=== PATIENT | male | born 1975 | race Caucasian/White ===

== ENCOUNTER 2018-07-03 07:57 | Emergency (ER) | payer OTHER ==
[~2018-07-03] VITALS: Ht 180.3 cm; Wt 93.0 kg
[2018-07-03 08:57] VITALS: BP 152/94
--- NOTE | 2018-07-03 09:04 | PHYS DOC ---
Adult General Chief Complaint Chief Complaint: BACK PAIN OR INJURY HPI HPI Patient is a 42 year old male with no significant medical history who presents to the ED today complaining of mild right low back pain radiating to the right lower extremity that began 3 days ago after he lifted something at work. Patient denies any loss of bowel bladder function. Denies any numbness or tingling to bilateral lower extremities. He states the pain is worse when he sits on his buttocks. He describes the pain as burning and intermittent. He states he has not taken anything for his pain. Is requesting x-rays of his lumbar spine. Review of Systems Review of Systems Constitutional: Denies fever or chills [] Eyes: Denies change in visual acuity, redness, or eye pain [] HENT: Denies nasal congestion or sore throat [] Respiratory: Denies cough or shortness of breath [] Cardiovascular: No additional information not addressed in HPI [] GI: Denies abdominal pain, nausea, vomiting, bloody stools or diarrhea [] : Denies dysuria or hematuria [] Musculoskeletal: Reports right low back pain radiating to the right lower extremity Integument: Denies rash or skin lesions [] Neurologic: Denies headache, focal weakness or sensory changes [] All other systems were reviewed and found to be within normal limits, except as documented in this note. Allergies Allergies Allergies Coded Allergies Type Severity Reaction Last Updated Verified No Known Drug Allergies 07/03/18 No Physical Exam Physical Exam Constitutional: Well developed, well nourished, no acute distress, non-toxic appearance. [] HENT: Normocephalic, atraumatic, bilateral external ears normal, oropharynx moist, no oral exudates, nose normal. [] Eyes: PERRLA, EOMI, conjunctiva normal, no discharge. [] Neck: Normal range of motion, no tenderness, supple, no stridor. [] Cardiovascular:Heart rate regular rhythm, no murmur [] Lungs & Thorax: Bilateral breath sounds clear to auscultation [] Abdomen: Bowel sounds normal, soft, no tenderness, no masses, no pulsatile masses. [] Skin: Warm, dry, no erythema, no rash. [] Back: Diffuse paraspinal muscle tenderness to the right lumbar spine worse on the right SI joint, no midline lumbar spine tenderness, no CVA tenderness. [] Extremities: No tenderness, no cyanosis, no clubbing, ROM intact, no edema. [] Neurologic: Alert and oriented X 3, normal motor function, normal sensory function, no focal deficits noted. [] Psychologic: Affect normal, judgement normal, mood normal. [] Current Patient Data Vital Signs Vital Signs Date Time Temp Pulse Resp B/P (MAP) Pulse Ox O2 Delivery O2 Flow Rate FiO2 07/03/18 08:57 97.9 58 16 152/94 (113) 97 Room Air 97.9 EKG EKG [] Radiology/Procedures Radiology/Procedures []PROCEDURE: LUMBAR SPINE 2-3V Lumbar Spine 3 views. Indication: Low back Pain Comparison: None Procedure: 3 views are obtained. Findings:Normal lumbar lordosis is preserved.Vertebral body heights and intervertebral disc spaces are maintained. No evidence of acute fracture subluxation or dislocation is present.Mild anterior osteophytes. Impression: Mild degenerative changes. No acute findings. . If symptoms persist, MRI or CT scan could be used for further evaluation. Electronically signed by: Aniya Ellsworth MD (07/03/2018 9:31 AM) [facility] DICTATED and SIGNED BY: ANIYA ELLSWORTH MD DATE: 07/03/18 0931 Course & Med Decision Making Course & Med Decision Making Pertinent Labs and Imaging studies reviewed. (See chart for details) This is a 42-year-old male patient presented to the ED today with the right low back pain radiating to the right lower extremity that began 3 days ago after he lifted something at work. Patient has no cauda equina syndrome symptoms. Lumbar spine x-rays interpreted by radiologist are negative for any acute findings, noted for DJD of the lumbar spine. Patient was discharged with instructions to follow-up with PCP. Ice elevation encouraged. Given prescription for cyclobenzaprine and diclofenac. Dragon Disclaimer Dragon Disclaimer This electronic medical record was generated, in whole or in part, using a voice recognition dictation system. Departure Departure Impression: Primary Impression: Acute lumbosacral myofascial strain Additional Impressions: Degenerative joint disease (DJD) of lumbar spine Sciatica of right side Disposition: 01 HOME, SELF-CARE Condition: STABLE Patient Instructions: Arthritis, Degenerative-Brief, Lumbosacral Strain, Sciatica Additional Instructions: You were evaluated in the emergency room for low back pain with sciatica. Take the medications prescribed as ordered. Ice elevate the affected areas. Follow- up with your doctor in 1-2 weeks. Come back to the ED at any point symptoms worsen. Scripts Diclofenac Sodium (DICLOFENAC SODIUM) 50 Mg Tablet.dr 1 TAB PO BID, #30 TAB 0 Refills Prov: DEEPIKA NICKERSON APRN 07/03/18 Cyclobenzaprine Hcl (CYCLOBENZAPRINE HCL) 10 Mg Tablet 1 TAB PO TID, #30 TAB Prov: DEEPIKA NICKERSON APRN 07/03/18 Problem Qualifiers Primary Impression: Acute lumbosacral myofascial strain Encounter type: initial encounter Qualified Codes: S39.012A - Strain of muscle, fascia and tendon of lower back, initial encounter Additional Impressions: Degenerative joint disease (DJD) of lumbar spine Spinal osteoarthritis complication: unspecified spinal osteoarthritis Qualified Codes: M47.816 - Spondylosis without myelopathy or radiculopathy, lumbar region DEEPIKA NICKERSON APRN Jul 03, 2018 09:04
--- NOTE | 2018-07-03 09:34 | RAD ---
Lumbar Spine 3 views. Indication: Low back Pain Comparison: None Procedure: 3 views are obtained. Findings:Normal lumbar lordosis is preserved.Vertebral body heights and intervertebral disc spaces are maintained. No evidence of acute fracture subluxation or dislocation is present.Mild anterior osteophytes. Impression: Mild degenerative changes. No acute findings. . If symptoms persist, MRI or CT scan could be used for further evaluation. Electronically signed by: Aniya Ellsworth MD (07/03/2018 9:31 AM) [id number]
[2018-07-03] MEDS ORDERED: CYCL10TA2 PO (09:46)
[2018-07-03] MEDS ORDERED: DICL50TA4 PO (09:46)
== END 2018-07-03 10:27 | disposition home or self-care (01) ==
LOC: ER 07:57
DX: S39.012A Strain of muscle, fascia and tendon of lower back, initial encounter (principal); M47.816 Spondylosis without myelopathy or radiculopathy, lumbar region; X50.0XXA Overexertion from strenuous movement or load, initial encounter; Y93.89 Activity, other specified; Y92.89 Other specified places as the place of occurrence of the external cause; Y99.0 Civilian activity done for income or pay
CPT/HCPCS: 72100; 99283